=== PATIENT | male | born 1960 | race Caucasian/White ===

== ENCOUNTER 2017-07-16 03:02 | Observation (INO) | payer MEDICARE ==
[2017-07-16 04:53] LABS: Troponin I Less than 0.010 ng/mL (< 0.028)
[2017-07-16] MEDS ORDERED: Ondansetron ODT 4 MG TAB SL PRN (05:48)
[2017-07-16] MEDS ORDERED: Ondansetron HCl/PF 4 MG/2 ML Vial IVP PRN (05:48)
[2017-07-16 06:07] VITALS: BMI 26.6
[2017-07-16 07:43] LABS: Troponin I Less than 0.010 ng/mL (< 0.028)
[2017-07-16] MEDS ORDERED: Non-Formulary Item 1 EACH (Oxycodone Hcl/Acetaminophen [Percocet] 1 TABLET) PO PRN (08:37)
[2017-07-16] MEDS ORDERED: fentaNYL 75 mcg/hour Patch TD SCH ×2 (08:45→10:00)
[2017-07-16] MEDS ORDERED: Aspirin 325 mg Enteric Coated Tablet PO SCH (09:00)
[2017-07-16] MEDS ORDERED: PREGABALIN 225 MG PO SCH (09:00)
[2017-07-16] MEDS ORDERED: oxyCODONE/Acetaminophen 5 mg/325 mg Tablet PO PRN (09:18)
[2017-07-16] MEDS ORDERED: Pregabalin 75 MG CAP PO SCH ×2 (09:30→21:00)
--- NOTE | 2017-07-16 09:43 | HP ---
CHIEF COMPLAINT: Chest pain. HISTORY OF PRESENT ILLNESS: The patient is a 56-year-old male with a history of coronary artery dise ase and some type of tachyarrhythmia who presented with chest pain. The patient reports that he had a prior myocardial infarction and underwent a heart catheterization. He was apparently supposed to h ave a stent placed at [facility] in [place]. He was in the Admin Prog Coord with the catheter inserted w hen a second physician (presumably an attending) came in and argued with the physician intending to d o the stent and told him it was not necessary and they ultimately aborted the procedure. He has subs equently not had a stent placed. He was following with a tile mason out of [facility] in [place], but that tile mason apparently no longer came to his area to see the patient's and he has not estab lished with anybody new in over a year. The patient also reports a history of the tachyarrhythmia. He is unsure what type, but states he never required any anticoagulation. He reported that he had ne urocardiogenic syncope and initially had an ablation performed in [place] and subsequently had a foll ow up ablation done at [facility] in [place]. Yesterday, the patient felt like he was having some ir regular pulse that was taking his breath away. Subsequently, he had the onset of chest pain. He gely cribes two different components to the chest pain. He had a stabbing pain in the left chest that las casper only a second and radiated to the left shoulder area. He also had the second type of pain which was a pressure sensation that was constant and rated a 6/10 at its peak. He had some associated sign ificant diaphoresis with this. He was taken to the emergency department where he received 2 nitrogly cerins and a shot for anxiety and pain and he states that his pain resolved at that time. The patien t also reports that he has had chronic back pain that has some chest related component which seems to confuse the picture somewhat. Currently, the pressure sensation is resolved, but he does continue t o have some occasional sharp pain. Of note, the emergency room, noted that the patient was having so me PVCs when he was experiencing these sharp pains. REVIEW OF SYSTEMS: HEENT: Cranial nerves; he has decreased hearing, otherwise negative. GI: He has no problem swallowing. No diarrhea or constipation. CONSTITUTIONAL: He has had poor sleep secondary to his back pain, but stable weight otherwise NEURO: The patient has had some left lower extremity sensation that his foot feels like it is asleep with a pins and needle sensation that started yesterday. He has continued to have very minimal amou nts of that. PULMONARY: Negative except for the shortness of breath associated with chest pain. He has had no co ugh. MUSCULOSKELETAL: Negative. No problems with muscles, bones or joints. SKIN: Negative. No lesions or rashes. PSYCHIATRIC: The patient does admit to having some intermittent depression. : The patient states he has constant urge to void, but has some difficulty with initiation. CARDIOVASCULAR: As above. PAST MEDICAL HISTORY: 1. Notable for coronary artery disease with a history of the VT. He has no cath based interventions performed. 2. Chronic back pain. 3. Depression leading to disability. 4. BPH. PAST SURGICAL HISTORY: 1. Cardiac ablation. 2. Cholecystectomy. 3. Back surgery x2 on the lumbar area. He reports that he had an L4-5 diskectomy with an artificial disk placed with rods and screws performed by Dr. Lama. 4. Hand surgery to the left hand. FAMILY HISTORY: His father had coronary artery disease with coronary artery bypass with his heart di ricardo initiated in his early 60s. Mother is healthy. Son has some congenital heart disease requirin g surgery as a baby. SOCIAL HISTORY: The patient is . He is on Disability because of depression that started with his initial heart problems. 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 He denies alcohol use presently, but states he used alcohol fairly heavily before he had to be on pain medications. He also uses snuff all day every day. MEDICATIONS: Lyrica 225 p.o. b.i.d., Lipitor 40 mg at bedtime, fentanyl patch 1 topical q. 2 days, metoprolol XL 25 mg p.o. daily, Ecotrin 325 p.o. daily, oxycodone, Percocet 1 tablet q.6 hours p.r.n. ALLERGIES: MEPERIDINE. CODE STATUS: Discussed code status with the patient and he would like all interventions as full code . SURROGATE DECISION MAKER: The patient states his would be his decision maker. PHYSICAL EXAMINATION: VITAL SIGNS: Temperature 97.6, pulse 59, respirations 16, O2 sats 95% on room air, BP is 120/68. GENERAL APPEARANCE: Age appropriate male. He was initially asleep, but easily awakened. HEENT: PERRL. No OP lesions. He does have some granules of snuff in his mouth now. NECK: Supple and symmetric without JVD or carotid bruits. CARDIOVASCULAR: Regular rate and rhythm with no murmurs, gallops or rubs. RESPIRATORY: Lungs clear to auscultation bilaterally with good chest wall expansion and air exchange . No wheezes or rales. ABDOMEN: Soft, flat, nontender, nondistended, positive bowel sounds. No masses and no organomegaly. EXTREMITIES: Warm and dry with no edema. NEUROLOGIC: The patient has normal sensation to light touch and 5/5 strength in both lower extremiti es. LABORATORY DATA: Troponin is less than 0.1 x2. Labs from the outside emergency room notable for glu cose of 122, otherwise CBC and CMP are generally unremarkable. Drug screen notable and positive for oxycodone. EKG shows sinus bradycardia at 48 beats per minute. Chest x-ray was unremarkable. IMPRESSION AND PLAN: 1. Chest pain in a patient with an apparent history of coronary artery disease and myocardial infarc tion, not requiring intervention. The patient denies a history of hypertension or hyperlipidemia; ho wever, he has that in his record from the outside facility. He also has a history of some tachyarrhy thmia requiring ablation and was noted to have some sharp pain in the emergency department associated with premature ventricular contractions on the monitor. We will keep the patient in observation. C ontinue troponin. We will consult Cardiology as the patient will at least need to establish with odnavon madeline who can follow him. We will also order a stress test and echocardiogram. 2. Chronic back pain. We will continue with his usual home regimen. 3. History of depression, stable. He will need outpatient followup and treatment. 4. Hyperlipidemia. The patient did not report this. It is in his record and he is taking medicatio n for it. We will check his lipid panel and continue with the Lipitor.
[2017-07-16] MEDS ORDERED: Lorazepam 2 MG/ML VIAL SLOW IVP SCH (10:45)
[2017-07-16 12:10] VITALS: TEMP 97.7
--- NOTE | 2017-07-16 13:30 | NM ---
CARDIAC SPECT WITH EF AND WALL MOTION: HISTORY: A 56-year-old male with a history of chest pain, prior [place], congestive heart failure, heart catheteriz ation and ablation and dyslipidemia. FINDINGS: Stress images were performed following 28.4 mCi Technetium 99m sestamibi intravenously. Resting imag es were performed following 9.7 mCi Technetium 99m sestamibi intravenously. Multiple SPECT images in the short axis, vertical long axis, and horizontal long axis demonstrate no scan evidence for infarct or ischemia. TID 1.11. LHR 0.35. EDV 139 mL. EF is 66%. MYOCARDIAL PERFUSION WALL MOTION: Wall motion is normal. IMPRESSION: End-diastolic volume 139 mL. No scan evidence for infarct or ischemia. POS: ELADIO
[2017-07-16] MEDS ORDERED: Regadenoson 0.4 MG/5 ML SYRINGE ONE (13:31)
[2017-07-16 15:34] VITALS: BP 113/68
[2017-07-16] MEDS ORDERED: Atorvastatin Calcium 40 MG TAB PO SCH (21:00)
--- NOTE | 2017-07-17 11:17 | CON ---
DATE OF CONSULTATION: 07/16/2017 INDICATION FOR CONSULTATION: A 56-year-old gentleman with left shoulder pain and radiating down to t he left arm with some history of coronary artery disease. HISTORY OF PRESENT ILLNESS: This very unfortunate 56-year-old gentleman has a very diverse story con cerning his cardiac history. He is originally said about 20 years ago, he underwent a cardiac cathet erization at [facility] in [place]. At that time, he was on the table, another physician came in and had a disagreement about his procedure for the cardiac catheterization. Eventually, he was take n off the table without having the cardiac catheterization performed. He then recently had another c ardiac catheterization approximately somewhere between 7 and 10 years ago. He cannot recall exactly but says it was done at [place], at that time, he apparently had some vasospastic disease according to some of the records, but other times, he said he did have some narrowing, there was some blockages , but is definitely unclear. He also stated he had his first myocardial infarction at age 32. Howev er, the nuclear study here does not show any evidence of scar. He has a normal ejection fraction. T here is some indication the patient may have some vasospastic coronary artery disease, but he has bee n doing quite well. He also underwent an ablation for nonsustained ventricular tachycardia. He had an ablation also in the past several years ago done by Dr. Weinberg in [place] at [facility]. This was for nonsustained ventricular tachycardia. He did not have an AICD nor pacemaker implanted. Ther e was some mention in the records, he may have had an AICD implant. He has not had this performed an d he said today that he had been doing quite well until he started noticing recently in the last few weeks that he has some occasional palpitations somewhat similar to what he has had previously was abl ation in the past. He described his pain at this time is being a stabbing type chest pain, radiating to the shoulder, lasting only for a few seconds and the worse was 6/10. He said he also has a histo ry of anxiety. He has a history of chronic pain syndrome, for which he takes medications. Otherwise , he has not had any significant problems and that his EKG did not show any acute ST segment changes. He has a normal sinus rhythm with no ST segment indication of ischemia. The stress test today show ed no evidence of scar or ischemia. He had normal ejection fraction. His cardiac enzymes were sligh tly indeterminate at least according to the records, but I did not see any indication this patient perales s suffered a myocardial infarction at this time. PAST MEDICAL HISTORY: Significant for anxiety, possible vasospastic coronary artery disease, ablatio n for nonsustained ventricular tachycardia, I believe that the cardiac enzymes were negative at this time, there is no indication the patient suffered a myocardial infarction. He has history of hyperch olesterolemia, chronic pain syndrome. He has a history of a Patel's cyst. He has a history of depre ssion. He has a history of mitral valve regurgitation. There was also some history of possible mitr al valve prolapse then review of the records. PAST SURGICAL HISTORY: Includes a cholecystectomy. He has had back surgery with diskectomy and he h as had hardware placement. He has had hand surgery. MEDICATIONS: Include Lyrica, Lipitor, fentanyl patch, metoprolol, enteric coated aspirin, oxycodone, and Percocet. ALLERGIES: He is allergic to MEPERIDINE. FAMILY HISTORY: Positive for coronary artery disease. His son also had, I believe some congenital h eart disease. SOCIAL HISTORY: He smoked in the past, but no longer smokes. He never smoked in the past. He did d rink alcohol in the past, but no longer drinks. 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 He is , has children alive and well. REVIEW OF SYSTEMS: A 12-point review of systems unremarkable except what was noted in the history of present illness except he has chronic constipation most likely due to his pain medications. He has chronic pain. He had no significant HEENT complaints, no pulmonary complaints. No complaints, an d neurologically did complain of some dizziness. He did have some palpitations. Otherwise is unrema rkable. PHYSICAL EXAMINATION: GENERAL: Reveals a well-developed, well-nourished gentleman, who is in no acute distress at this [facility]. He is alert and oriented. VITAL SIGNS: Blood pressure 113/68. He is afebrile. Heart rate is 74 and regular, respiratory rate 16, O2 saturation 96%. HEENT: Shows the head to be normocephalic and atraumatic. Carotid pulses are present. There were n o bruits. There is no JVD. The thyroid is not enlarged. Oral mucosa was pink and moist. CHEST: Clear to auscultation. There are no rales, rhonchi or wheezing noted. CARDIOVASCULAR: Exam reveals a regular rate and rhythm with normal S1, S2. There is no S3 or S4. T here were no significant murmurs, heaves, thrills, bruits or rubs. ABDOMEN: Soft and nontender. Positive bowel sounds are present. EXTREMITIES: Show no clubbing, cyanosis or edema. Pedal pulses are present. NEUROLOGIC: The patient appears to be intact. SKIN: Warm and dry. Review of the telemetry, there has been no arrhythmias noted. His EKG is unremarkable. Enzymes are negative. Stress test is unremarkable. At this time, I did not see any significant cardiac abnormal ities that would warrant any further investigation at this time. IMPRESSION: 1. Somewhat atypical chest discomfort radiating to the left shoulder, left arm, but workup thus far has been negative. It will be interesting to obtain the most recent cardiac catheterization, which w as done somewhere between 6 and 10 years ago at [place] to determine whether or not the patient had any coronary disease, but according to the records from Dr. Hou, appears he may have had some vaso spastic disease, but there were no significant blockages noted. 2. Chronic pain syndrome, which will be dealt with by the primary care service. 3. History of hypercholesterolemia. His triglycerides are slightly elevated as well as the LDL, but if he has no known coronary disease and is within normal limits. 4. History of anxiety and depression. This also need to be dealt with by the primary care service. At this time, from a cardiac standpoint, he appears to be stable and the patient could be followed u p as an outpatient. 5. History of ablations for nonsustained ventricular tachycardia with new onset of palpitations. Th e patient would be advised to undergo an event monitor to see whether or not any further significant arrhythmias have been documented and if so, he may need to undergo repeat ablation of his nonsustaine d ventricular tachycardia.
--- NOTE | 2017-07-17 14:21 | DIS ---
DATE OF ADMISSION: 07/16/2017 DATE OF DISCHARGE: 07/16/2017 DISCHARGE DIAGNOSES: 1. Chest pain. 2. History of reported coronary artery disease (unconfirmed). 3. History of arrhythmia requiring ablation. 4. History of hyperlipidemia. 5. Chronic low back pain. HISTORY: This patient is a 56-year-old male who reported some type of prior [place] with a heart catheter ization, but no specific interventions. Apparently, some records indicate that the patient may have had some type of vasospastic issue. He also had a history of an electrophysiologic ablation for what he described as neurocardiogenic syncope. He presented to the emergency department complaining of s ome palpitations and chest pain in the left chest, which was a stabbing sensation radiating to the le ft shoulder area. He received 2 nitroglycerins and an injection. He states that was for anxiety, wh ich helped to resolve his symptoms. His initial workup was negative for ischemic changes on EKG or e levated troponins. He subsequently was placed in observation. HOSPITAL COURSE: The patient was kept on telemetry with serial cardiac isoenzymes obtained, which we re unremarkable. He was seen in consultation by Cardiology. Dr. Tan felt as though the patient's s ymptoms were somewhat atypical and he could safely be discharged to follow up as an outpatient. He a lso recommended an event monitor to determine if the patient was having recurrent episodes of tachyar rhythmia, which might be amenable to further ablation. He had an echocardiogram obtained, which was unremarkable with an ejection fraction of 60%-65%. PHYSICAL EXAMINATION: VITAL SIGNS: Temperature was 97.7, pulse 74, respirations 16, O2 sat 96%, blood pressure 113/68. GENERAL: He was awake, alert, pleasant, cooperative. HEART: Regular rate and rhythm without murmur. LUNGS: Clear bilaterally. ABDOMEN: Soft, nontender, nondistended with positive bowel sounds. EXTREMITIES: Warm and dry. LABORATORY DATA: His triglycerides were 205, cholesterol 185, LDL 113, HDL 31. DISPOSITION: The patient is discharged to home. DISCHARGE MEDICATIONS: He is on his usual Percocet 1 p.o. q.6 hours p.r.n., Toprol-XL 25 mg every da y, aspirin 325 every day, fentanyl patch q.2 days, Lyrica 225 mg b.i.d., atorvastatin 40 mg at bedtim e. DIET: He is to have a heart healthy diet. ACTIVITY: His activity level is as tolerated. FOLLOWUP: He should follow up with his PCP and Dr. Tan in 1 week. He should return to the emergenc y department should he have any problems prior to that time.
== END 2017-07-16 18:35 | disposition home or self-care (01) ==
LOC: ERS 03:02 → 2SW 04:13
PROVIDERS: ADMIT Internal Medicine; ATTEND Internal Medicine
DX: R07.89 Other chest pain (principal); I25.10 Atherosclerotic heart disease of native coronary artery without angina pectoris; I25.2 Old myocardial infarction; F32.9 Major depressive disorder, single episode, unspecified; N40.0 Benign prostatic hyperplasia without lower urinary tract symptoms; E78.5 Hyperlipidemia, unspecified; G89.4 Chronic pain syndrome; E78.00 Pure hypercholesterolemia, unspecified; F41.9 Anxiety disorder, unspecified; Z87.891 Personal history of nicotine dependence; Z79.82 Long term (current) use of aspirin; Z79.899 Other long term (current) drug therapy; Z88.5 Allergy status to narcotic agent; Z98.890 Other specified postprocedural states
CPT/HCPCS: 78452; 80061; 84484 ×2; 93005; 93017; 93306; 96374; 99285; A9500; G0378; 36415; J2060; J2785